=== PATIENT | female | born 1960 | race Caucasian/White ===

== ENCOUNTER → 2016-11-20 | Outpatient (CLI) | payer SELFPAY ==
[~2016-11-20] MED LIST: INDOCIN50 MG PO; NORCO 5/3251 TABLET PO; VALIUM5 MG PO
== END | disposition home or self-care (01) ==
LOC: RAD 10:43
DX: M17.11 Unilateral primary osteoarthritis, right knee (principal); M25.461 Effusion, right knee; M23.41 Loose body in knee, right knee
CPT/HCPCS: 73564

== ENCOUNTER 2016-12-01 16:16 | Emergency (ER) | payer SELFPAY ==
[~2016-12-01] VITALS: Ht 172.7 cm; Wt 85.3 kg
[2016-12-01 17:00] LABS: MCH 30.1 PG (29.0-34.0); MCHC 33.4 G/DL (30.0-36.0); MCV 90.2 FL (83-99); MEAN PLAT.VOLUME 9.8 uM^3 (9.5-12.4); PLATELET COUNT 316 K/uL (156-360); RBC DIS.WIDTH-CV 13.8 % (11.8-14.6); RBC DIS.WIDTH-SD 44.3 % (39-53); RED BLOOD COUNT 4.88 M/uL (3.80-5.20); WHITE BLOOD COUNT 15.6 K/uL (4.1-10.2)
[2016-12-01 17:17] LABS: ADD MIUA? YES; BILIRUBIN NEGATIVE; BLOOD SMALL; COLOR YELLOW ((YELLOW)); GLUCOSE (STRIP) NEGATIVE; KETONES NEGATIVE; LEUKOCYTES SMALL; NITRITE POSITIVE; PROTEIN (STRIP) NEGATIVE; SPECIFIC GRAVITY 1.021 (1.000-1.030); UROBILINOGEN 0.2 MG/DL (0.2-1.0)
[2016-12-01 17:28] LABS: BACTERIA RARE /HPF; CALCIUM OXALATE CRYSTALS 3+ /HPF; EPITHELIAL CELLS 1+ /HPF; MUCUS TRACE /LPF; UCUL ADDED? NO; UNCLASSIFIED CASTS 0-5 /LPF
[2016-12-01 17:39] LABS: CHLORIDE 107 mEq/L (99-109); POTASSIUM 3.6 mEq/L (3.7-5.4); SODIUM 143 mEq/L (136-147)
[2016-12-01 17:41] LABS: GLUCOSE 79 mg/dL (70-99)
[2016-12-01 17:43] LABS: ANION GAP 10 MEQ/L (2-14); TOTAL BILIRUBIN 0.4 mg/dL (0.0-1.0)
[2016-12-01 17:45] LABS: ALKALINE PHOSPHATASE 118 IU/L (3-129); GFR ESTIMATE (CALCULATED) > 59 mL/min/
[2016-12-01 17:46] LABS: UREA NITROGEN (BUN) 22 mg/dL (9-23)
[2016-12-01 18:08] LABS: LIPASE 20 U/L (1.0-51.0)
[2016-12-01] MEDS ORDERED: ZOFRAN4 MG PO (19:27)
[2016-12-01] MEDS ORDERED: CIPRO500 MG PO (19:27)
[2016-12-01] MEDS ORDERED: NAPROSYN500 MG PO (19:27)
[2016-12-01 19:59] VITALS: BP 158/96
== END 2016-12-01 20:00 | disposition home or self-care (01) ==
LOC: EME 16:16
DX: N39.0 Urinary tract infection, site not specified (principal); R11.2 Nausea with vomiting, unspecified; R19.7 Diarrhea, unspecified; F17.200 Nicotine dependence, unspecified, uncomplicated
CPT/HCPCS: 74176; 80053; 81003; 83690; 85027; 99281; 99284; J2270; J2405; J7030

== ENCOUNTER → 2017-01-20 | Outpatient (CLI) | payer SELFPAY ==
[~2017-01-20] MED LIST changes: +CIPRO500 MG PO; +NAPROSYN500 MG PO; +ZOFRAN4 MG PO
== END | disposition home or self-care (01) ==
LOC: RAD 09:54
DX: N20.0 Calculus of kidney (principal); N28.1 Cyst of kidney, acquired
CPT/HCPCS: 76770

== ENCOUNTER → 2017-07-01 | Outpatient (CLI) | payer SELFPAY | END | disposition home or self-care (01) | LOC: RAD 09:22 | DX: J84.10 Pulmonary fibrosis, unspecified (principal); F17.200 Nicotine dependence, unspecified, uncomplicated | CPT/HCPCS: 71250 ==

== ENCOUNTER → 2018-01-29 | Outpatient (CLI) | payer SELFPAY | END | disposition home or self-care (01) | LOC: RAD 09:00 | DX: N28.1 Cyst of kidney, acquired (principal); N20.0 Calculus of kidney; M47.896 Other spondylosis, lumbar region; Z87.442 Personal history of urinary calculi; M54.5 Low back pain; G89.29 Other chronic pain | CPT/HCPCS: 72100; 76770 ==

== ENCOUNTER 2018-02-05 08:43 | Emergency (ER) | payer SELFPAY ==
[~2018-02-05] VITALS: Ht 172.7 cm; Wt 85.2 kg
[2018-02-05] MEDS ORDERED: ARTHROTEC 751 TABLET PO (09:10)
[2018-02-05] MEDS ORDERED: OXAYDO5 MG PO (09:11)
[2018-02-05] MEDS ORDERED: MIRAPEX ER3 MG PO (09:12)
[2018-02-05] MEDS ORDERED: SINGULAIR10 MG PO (09:12)
[2018-02-05] MEDS ORDERED: ULTRA OMEGA EAC PO (09:15)
[2018-02-05 09:49] LABS: BASOPHIL (%) 0.4 % (0-1); EOSINOPHIL (%) 2.4 % (0-5); EOSINOPHIL COUNT 0.2 K/uL (0-0.3); HEMATOCRIT 39.2 % (36.0-46.0); HEMOGLOBIN 13.1 G/DL (11.9-15.5); IMMATURE GRANULOCYTE (%) 0.2 % (0.0-0.7); LYMPHOCYTE (%) 20.5 % (15-42); LYMPHOCYTE COUNT 1.7 K/uL (1.0-2.8); MCH 31.3 PG (29.0-34.0); MCHC 33.4 G/DL (30.0-36.0); MCV 93.6 FL (83-99); MONOCYTE (%) 4.7 % (3-12); MONOCYTE COUNT 0.4 K/uL (0-0.8); NEUTROPHIL (%) 71.8 % (45-76); NEUTROPHIL COUNT 5.8 K/uL (1.8-6.4); PLATELET COUNT 258 K/uL (156-360); RBC DIS.WIDTH-CV 13.2 % (11.8-14.6); RBC DIS.WIDTH-SD 44.9 % (39-53); RED BLOOD COUNT 4.19 M/uL (3.80-5.20)
[2018-02-05 10:02] LABS: ALBUMIN 4.2 g/dL (3.2-4.8); CHLORIDE 106 mEq/L (99-109); SODIUM 141 mEq/L (136-147)
[2018-02-05 10:04] LABS: GLUCOSE 101 mg/dL (70-99); TOTAL PROTEIN 6.4 g/dL (6.4-8.3)
[2018-02-05 10:06] LABS: TOTAL BILIRUBIN 0.4 mg/dL (0.0-1.0)
[2018-02-05 10:08] LABS: ALKALINE PHOSPHATASE 125 IU/L (3-129); CREATININE 0.6 mg/dL (0.6-1.3); GFR ESTIMATE (CALCULATED) > 59 mL/min/
[2018-02-05 10:09] LABS: UREA NITROGEN (BUN) 15 mg/dL (9-23)
[2018-02-05 10:10] LABS: AST (GOT) 33 IU/L (2-34)
[2018-02-05 10:11] LABS: ALT (GPT) 36 IU/L (3-49)
[2018-02-05] MEDS ORDERED: EPIPEN ADU0.3 MG/0.3 IM (11:02)
[2018-02-05] MEDS ORDERED: ATARAX,VISTARIL25 MG PO (11:02)
[2018-02-05 11:11] VITALS: BP 144/96
== END 2018-02-05 11:21 | disposition home or self-care (01) ==
LOC: EME 08:43
PROVIDERS: Emergency Medicine
DX: T78.40XA Allergy, unspecified, initial encounter (principal); L29.9 Pruritus, unspecified; R20.8 Other disturbances of skin sensation; R23.8 Other skin changes; F17.200 Nicotine dependence, unspecified, uncomplicated
CPT/HCPCS: 80053; 85025; 99281; 99284; J1200; J7512; S0028